=== PATIENT | female | born 1965 | race Caucasian/White ===

== ENCOUNTER 2023-03-19 09:24 | Outpatient (CLI) | payer OTHER, SELFPAY ==
--- NOTE | 2023-03-19 09:45 | CRLHL7_ITS ---
For Patients: As a result of the Century Cures Act, medical imaging exams and procedure reports are released immediately into your electronic medical record. You may view this report before your referring provider. If you have questions, please contact your health care provider. BILATERAL SCREENING MAMMOGRAM WITH COMPUTER-AIDED DETECTION AND TOMOSYNTHESIS TECHNIQUE: CC and MLO views were obtained. These mammographic images have been obtained using full-field digital technique. These mammographic images were interpreted with the benefit of computer-aided detection. Breast Tomosynthesis was used in this interpretation. COMPARISON FILM: 03/27/13. FINDINGS: There are scattered areas of fibroglandular density IMPRESSION: There is no radiographic evidence for malignancy. ASSESSMENT: BI-RADS Category 1: Negative RECOMMENDATION: Routine screening mammogram in 1 year. A lay language report of this examination will be provided to the patient. Roberto Hu M.D. Diagnostic Radiologist [email or web address] PEÑA/Dictated by: Roebrto Hu MD @ 03/19/2023 11:46:00 AM (Electronically Signed)
== END 2023-03-19 09:25 | disposition home or self-care (01) ==
LOC: MAMMO 09:27
PROVIDERS: Visit Provider Family Medicine
DX: Z12.31 Encounter for screening mammogram for malignant neoplasm of breast (principal)
CPT/HCPCS: 77063; 77067

== ENCOUNTER 2023-11-27 13:23 | Outpatient (CLI) | payer BC, SELFPAY ==
--- NOTE | 2023-11-27 13:45 | CRLHL7_ITS ---
For Patients: As a result of the Century Cures Act, medical imaging exams and procedure reports are released immediately into your electronic medical record. You may view this report before your referring provider. If you have questions, please contact your health care provider. CLINICAL HISTORY: PMB 1 episode x 5 days TECHNIQUE: 2D green scale and color Doppler images were acquired of the pelvis using a transvaginal approach. FINDINGS: On transvaginal imaging, there is a partially exophytic fibroid arising from the uterine fundus anteriorly measuring 1.9 x 1.5 x 2.0 cm. The uterus measures 8.3 x 4.1 x 4.5 cm. The endometrial lining is heterogeneous and measures 6.5 mm in thickness. The ovaries are not visualized. There are no suspicious fluid collections within the cul-de-sac. IMPRESSION: Heterogeneity of the endometrium which measures 5.3 millimeters. No endometrial fluid. Partially exophytic anterior fundal fibroid measures 2.0 cm. Dictated by Roberto Hu MD @ 11/29/2023 6:12:28 AM (Electronically Signed)
== END 2023-11-27 13:24 | disposition home or self-care (01) ==
PROVIDERS: PCP Family Medicine; Visit Provider Family Medicine
DX: N95.0 Postmenopausal bleeding (principal); D25.9 Leiomyoma of uterus, unspecified
CPT/HCPCS: 76830

== ENCOUNTER 2024-01-22 06:42 | Day surgery (SDC) | payer BC, SELFPAY ==
[2024-01-22] MEDS: LACTATED RINGERS 1000 ML 1,000 ML 100 ML IV (06:50)
[2024-01-22 07:16] VITALS: BP 119/85; PULSE 68; RESP 16; TEMP 36.3; O2SAT 96
[2024-01-22 07:19] VITALS: BMI 32.1
[2024-01-22] MEDS: SODIUM CHLORIDE 0.9 % (FLUSH) 10 ML SYRINGE IVF (07:19)
[2024-01-22 07:27] LABS: Hemoglobin* 14.3 gm/dL (12.0-16.0)
[2024-01-22 07:47] LABS: Creatinine* 0.6 mg/dL (0.5-1.5); Estimated Glomerular Filt Rate 105 ml/min
--- NOTE | 2024-01-22 08:20 | W.PM.H&PU ---
History & Physical Update History & Physical Update H&P Reviewed and patient assessed: No changes noted H&P Updates: No interval update. No more vaginal bleeding episode since the last time we spoke.
[2024-01-22 09:00] VITALS: BP 112/78; PULSE 72; RESP 16; TEMP 36.4; O2SAT 94
--- NOTE | 2024-01-22 09:00 | W.ANESCHARGE ---
Anesthesia Charges Start Date/Time Anesthesia Start Date: 01/22/24 Anesthesia Start Time: 08:11 Stop Date/Time Anesthesia Stop Date: 01/22/24 Anesthesia Stop Time: 09:00
--- NOTE | 2024-01-22 09:13 | W.PM.GYNPROC ---
Procedure Note Time Seen by Provider: 08:00 Date of procedure: 01/22/24 Will [facility] bill your pro fee for this procedure?: Yes Pre-op diagnosis: 1. Postmenopausal bleeding Post-op diagnosis: 1. Postmenopausal bleeding Procedure: 1. Hysteroscopy 2. Dilation and curettage Anesthesia: MAC and local Complications: None Surgeon: Susanne Hernadez MD Urine Output (mL): 80 Pathology: specimen obtained, sent to pathology (Endometrial curetting ) Condition: stable Disposition: PACU Findings: Exam under anesthesia: Mons normal, clitoris normal, urethral meatus normal. Labia minora and majora normal in appearance bilaterally. Perineum and anus normal appearance. Vaginal introitus with mild atrophy. Vaginal pink and well rugated with scant white discharge. Cervix pink and without lesion. Bimanual exam reveals uterus to be small, soft, nontender, mobile, anteverted, of normal size and texture. No palpable adnexal masses or tenderness. On hysteroscopy: Atrophic endometrium Procedure Description: Estimated blood loss: <5 mL Specimen: Endometrial curettings to pathology. Arlin was taken to the operating where conscious sedation was found to be adequate. She was placed in the dorsal lithotomy position. An exam under anesthesia was performed with findings stated above. She was then prepped and draped in normal sterile manner. A bivalve metal speculum was placed in the vaginal canal. The cervix and vaginal canal appear normal. A paracervical block was placed using 1% lidocaine with epinephrine: 5 mL injected at the 4 and 8 o'clock positions on the cervix. The anterior lip of the cervix was then grasped with a long tenaculum. The cervix was dilated to Hegar 6. The uterus sounded to 8 cm. The hysteroscope advanced into the uterus and a diagnostic hysteroscopy was performed with findings stated above. Normal saline was used as the insufflation medium. Soft tissue shaver was used to perform global curetting. The uterus and documented a normal appearing uterine cavity at the end of the procedure. Fluid deficit at the end of the procedure 130 mL. The hysteroscope and tenaculum clamp were removed from the uterus and cervix. Excellent hemostasis noted. Nothing was used for hemostasis. The patient tolerated the procedure well. Sponge, lap and instruments counts were correct at the end of the procedure. The patient was awakened from anesthesia and taken to the recovery area in stable condition. Surgical debrief performed at the end of the procedure.
[2024-01-22 09:15] VITALS: BP 101/71; PULSE 68; RESP 16; O2SAT 92
--- NOTE | 2024-01-22 09:22 | W.ANESCHARGE ---
Anesthesia Charges Start Date/Time Anesthesia Start Date: 01/22/24 Anesthesia Start Time: 08:11 Stop Date/Time Anesthesia Stop Date: 01/22/24 Anesthesia Stop Time: 09:00
[2024-01-22 09:30] VITALS: BP 106/79; PULSE 63; RESP 16; O2SAT 95
[2024-01-22 09:52] VITALS: BP 121/82; PULSE 67; RESP 16; O2SAT 94
== END 2024-01-22 10:08 | disposition home or self-care (01) ==
LOC: OR 06:43
PROVIDERS: PCP Family Medicine; Visit Provider Obstetrics & Gynecology
PROC: 0UDB8ZZ Extraction of Endometrium, Via Natural or Artificial Opening Endoscopic (ICD-10-PCS; CPT 58558; principal; 2024-01-22 08:15)
DX: N95.0 Postmenopausal bleeding (principal)
CPT/HCPCS: 58558; 00952; 36415; 82565; 85018; 86850; 86900; 86901; 88305; C1782; J1885; J2250; J2405; J2704; J3010; J7120

== ENCOUNTER 2024-04-27 10:29 | Emergency (ER) | payer BC, SELFPAY ==
[2024-04-27 11:07] VITALS: BP 160/96; PULSE 83; RESP 18; TEMP 36.5; O2SAT 97; BMI 31.1
--- NOTE | 2024-04-27 11:34 | ED.CHESTPAIN ---
HPI - Chest Pain General Chief Complaint: Chest Pain Stated Complaint: Chest pain Time Seen by Provider: 04/27/24 11:05 History of Present Illness HPI narrative: This 58-year-old female comes in reporting some episodes of chest discomfort in her upper anterior left chest. She states that this seems to come on randomly and is not related to exertion. She does not report any nausea, vomiting, lightheadedness, shortness of breath, or diaphoresis. She states that the discomfort is somewhat reproducible with certain movements and taking a deep breath. She does not have any major cardiac risk factors. She does not report any exercise intolerance. Related Data Home Medications ?Medication ?Instructions ?Recorded ?Confirmed multivitamin 1 tab PO QDAY 12/12/23 02/04/24 Allergies Allergy/AdvReac Type Severity Reaction Status Date / Time Penicillins Allergy Hives Verified 02/04/24 13:29 Review of Systems Status of ROS Reports: 10 or more systems reviewed and unremarkable except as noted in History and below Narrative Constitutional: No fevers, no weight gain or loss. Eyes: No discharge. No vision changes. HENT: No congestion, no sore throat, no ear pain. Cardiovascular: No palpitations. Respiratory: No shortness of breath, no wheezes, no cough. Gastrointestinal: No abdominal pain, no vomiting, no diarrhea. Genitourinary: No dysuria, no hematuria. Musculoskeletal: Normal range of motion. Skin: No rashes, no pruritis. Neurological: No dizziness, weakness, sensory change, speech change. Endo/Heme/Allergies: No bruising or bleeding. No polydipsia. Pysch: no suicidality, no anxiety, no insomnia. All other systems reviewed and are negative. 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 (ICD-10) Surgical History (Updated 01/21/24 @ 12:45 by Tana Handley RN) Previous section ?Z98.891 - History of uterine scar from previous surgery (ICD-10) S/P tubal ligation ?Z98.51 - Tubal ligation status (ICD-10) Social History Smoking Status: Never smoker Do you use any of these nicotine containing products: None How often do you have a drink containing alcohol: never AUDIT-C Alcohol total score: 0 Non-prescribed substance use: denies use Caffeine: Yes (1 cup coffee) Are you using contraception or practicing any form of control: No Exam Narrative Exam Narrative: Constitutional: Well-developed, well-nourished, no acute distress. HEENT: Normocephalic, atraumatic. Neck: Normal range of motion. Nontender. Supple. Heart: Regular. No murmurs. Normal rate. Intact distal pulses. Lungs: Clear to auscultation. No chest discomfort currently. No wheezes, rhonchi, or rales. Abdomen: Normal bowel sounds. Nontender. No rebound tenderness. Genitalia: Deferred. Back: No midline tenderness. Normal range of motion. Extremities: Normal range of motion. No injury. Skin: Intact. No rash. Warm. No erythema or pallor. Neurologic: No altered sensation. No weakness. Alert and oriented. Psychiatric: No suicidality. No anxiety or depression. No insomnia. Nursing notes and vitals signs are reviewed. Const Vital Signs, click to edit/add: Vital Signs - 24 hr 04/27/24 11:07 Temperature 97.7 F Pulse Rate [Pulse Oximeter] 83 Respiratory Rate 18 Blood Pressure [Left Upper Arm] 160/96 H Pulse Oximetry 97 Oxygen Delivery Method Room Air Course Vital Signs Vital signs: Initial Vital Signs Temperature 97.7 F 04/27/24 11:07 Temperature Source Temporal Artery Scan 04/27/24 11:07 Pulse Rate 83 04/27/24 11:07 Respiratory Rate 18 04/27/24 11:07 Blood Pressure 160/96 H 04/27/24 11:07 Blood Pressure Mean 117 H 04/27/24 11:07 Blood Pressure Position Sitting 04/27/24 11:07 Pulse Oximetry 97 04/27/24 11:07 Oxygen Delivery Method Room Air 04/27/24 11:07 Vital Signs Temperature 97.7 F 04/27/24 11:07 Pulse Rate 83 04/27/24 11:07 Respiratory Rate 18 04/27/24 11:07 Blood Pressure 160/96 H 04/27/24 11:07 Pulse Oximetry 97 04/27/24 11:07 Oxygen Delivery Method Room Air 04/27/24 11:07 Temperature 97.7 F 04/27/24 11:07 Pulse Rate 83 04/27/24 11:07 Respiratory Rate 18 04/27/24 11:07 Blood Pressure 160/96 H 04/27/24 11:07 Pulse Oximetry 97 04/27/24 11:07 Oxygen Delivery Method Room Air 04/27/24 11:07 MDM - Chest Pain MDM Narrative Medical decision making narrative: This patient comes in reporting chest pain in her left upper anterior chest that comes and goes and is somewhat reproducible with certain movements. EKG is completely normal and a troponin point of care is obtained and this also returns at 0. The patient does not have any cardiac risk factors and is not currently having any pain. She does not have any exercise intolerance. This pain is likely chest wall pain. She is reassured with these results and feels okay to resume normal activities and plans. Lab Data Labs: Lab Results 04/27/24 Range/Units 11:32 POC Troponin I 0.00 L (0.01-0.04) ng/ml ECG Data Attestation: I personally reviewed and interpreted this ECG as follows: Interpretation: Normal sinus rhythm. Rate is 78 beats per minute. There are no ST or T-wave abnormalities. Discharge Plan Discharge Clinical Impression: Chest wall pain Patient Disposition: Home, Self-Care Condition: Stable Additional Instructions: Continue current plans. Use [id number] medicines as needed and directed. Activity as tolerated. Follow up with MD return if worsening. Prescriptions: No Action multivitamin Tablet 1 tab PO QDAY Follow Up/Referrals: Ham Muñoz MD [Primary Care Provider] - Stand Alone Forms: [facility] Information Network Info Instructions
== END 2024-04-27 12:27 | disposition home or self-care (01) ==
PROVIDERS: Emergency Provider Emergency Medicine Emergency Medical Services; PCP Family Medicine
DX: R07.89 Other chest pain (principal)
CPT/HCPCS: 84484; 93005; 99284

== ENCOUNTER 2024-12-08 15:15 | Outpatient (RCR) | payer BC, SELFPAY | END 2025-01-25 16:09 | disposition home or self-care (01) | PROVIDERS: PCP Family Medicine; Visit Provider Student in an Organized Health Care Education/Training Program | DX: M25.551 Pain in right hip (principal); Z51.89 Encounter for other specified aftercare | CPT/HCPCS: 97110; 97140; 97161 ==